=== PATIENT | female | born 1950 | race Caucasian/White ===

== ENCOUNTER 2017-07-30 20:18 | Emergency (ER) | payer MEDICAID, OTHER ==
[2017-07-30] MEDS: ACETAMINOPHEN 500 MG TAB PO (21:11)
[2017-07-30] MEDS: IBUPROFEN 600 MG TAB PO (21:11)
== END 2017-07-30 22:33 | disposition home or self-care (01) ==
LOC: FTE 20:18
DX: R50.9 Fever, unspecified (principal)
CPT/HCPCS: 71045; 99283-25

== ENCOUNTER 2018-10-09 06:19 | Day surgery (SDC) | payer OTHER ==
[2018-10-09] MEDS ORDERED: PROPOFOL 100 ML (09:31)
[2018-10-09] MEDS ORDERED: FENTAnyl 50 MCG/ML VIAL (09:32)
[2018-10-09] MEDS ORDERED: DEXAMETHASONE 4 MG/ML 5 ML INJ (09:59)
[2018-10-09] MEDS ORDERED: ONDANSETRON 4 MG INJ (09:59)
[2018-10-09] MEDS: STRONG IODINE 14 ML SOLUTION TOP (10:04)
[2018-10-09] MEDS ORDERED: LABETALOL HCL 20MG INJ IV (10:30)
[2018-10-09] MEDS ORDERED: FENTAnyl 50 MCG/ML VIAL IV ×3 (10:30)
[2018-10-09] MEDS ORDERED: OXYCODONE/ACETAMINOPHEN (5/325) TAB PO ×2 (10:30)
[2018-10-09] MEDS ORDERED: MIDAZOLAM 1 MG/ML 2 ML INJ IV (10:30)
[2018-10-09] MEDS ORDERED: ONDANSETRON 4 MG INJ IV (10:30)
[2018-10-09] MEDS ORDERED: EPHEDrine SULFATE 50 MG/5 ML SYG IV (10:30)
[2018-10-09] MEDS ORDERED: KETOROLAC 30 MG INJ IV (10:30)
[2018-10-09] MEDS ORDERED: MEPERIDINE 25 MG INJ IV (10:30)
[2018-10-09] MEDS ORDERED: HYDROmorphONE 1 MG/5 ML IV SYRINGE IV ×3 (10:30)
[2018-10-09] MEDS ORDERED: hydrALAzine 20 MG INJ IV (10:30)
[2018-10-09] MEDS ORDERED: DIPHENHYDRAMINE 50 MG INJ IV (10:30)
[2018-10-09] MEDS ORDERED: ALBUTEROL 0.083% (NEB) 2.5 MG/3 ML AMP HHN (10:30)
[2018-10-09] MEDS ORDERED: ACETAMINOPHEN 325 MG TAB PO (11:30)
== END 2018-10-09 12:15 | disposition home or self-care (01) ==
LOC: SDS 06:19
DX: N72 Inflammatory disease of cervix uteri (principal); I10 Essential (primary) hypertension
CPT/HCPCS: 57522; 84702; 86850; 86900; 86901; 88305